=== PATIENT | male | born 1990 | race Caucasian/White ===

== ENCOUNTER 2016-07-22 06:06 | Inpatient (IN) | payer MEDICARE, MEDICAID ==
[~2016-07-22] VITALS: Ht 177.8 cm; Wt 63.7 kg
--- NOTE | ~2016-07-22 | CON ---
PATIENT'S NAME: MATEUS WINTERS [facility] AGE: 26 Y [address] ROOM: [address] [address] LOCATION: [facility] [place] ADMIT DATE: 07/22/2016 Consultation DISCHARGE DATE: FAMILY PHYSICIAN: Rhonda Solis PA-C ATTENDING PHYSICIAN: Luan Baldwin DATE OF CONSULTATION: 07/22/2016 REASON FOR CONSULTATION: ESRD, need for hemodialysis and possibility of hungry bone syndrome after parathyroidectomy. 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 He has a history of failed his renal transplant at age 8 when the father was donor of the allograft. The graft lasted for about 15 years and now he is back on dialysis again and being evaluated for a re-transplant. He got admitted for parathyroidectomy for tertiary hyperparathyroidism. Surgery went well. Nephrology consultation has been called for management of dialysis as well as for monitoring the calcium with a possibility of hungry bone syndrome. The patient was seen and evaluated after the surgery. Currently doing well. No symptoms of tetany or any other cramps. The patient does not show any Chvostek sign on my exam. He feels well, has no symptoms of fluid overload. Got dialyzed yesterday as per his regular Tuesday, Tuesday, and Tuesday schedule. Plan to get dialyzed again tomorrow. REVIEW OF SYSTEMS: GENERAL: No fever. No chills or rigor. HEENT: The patient now has a surgical scar on the neck which is mildly tender just after surgery. No sinus congestion. CVS: No chest pain. No exertional shortness of breath. No leg swelling. RESPIRATORY: No shortness of breath. No cough. No wheezing. GENITOURINARY: No pain with urination. No increased frequency. No nocturia. GASTROINTESTINAL: No abdominal pain. No abdominal distention. No nausea or vomiting. NEUROLOGIC: No weakness. No seizures. SKIN: No rash. No itching. ALLERGIES: No seasonal allergy. No hayfever. ENDOCRINE: No heat intolerance. No cold intolerance. PSYCHIATRIC: No sadness. No crying spells. No history of panic attack. PAST MEDICAL HISTORY: 1. End-stage renal disease secondary to congenital obstructive uropathy and hydronephrosis with bladder exstrophy, status post urethral diversion and urostomy formation. 2. Status post living-related renal transplantation at age 8 from Father and the graft lasted for 15 years, now failed, and back on dialysis. 3. Tertiary hyperparathyroidism, status post partial parathyroidectomy today, 07/22/2016. 4. Anemia of chronic disease. 5. Hypertension. PATIENT'S NAME: MATEUS WINTERS [facility] AGE: 26 Y [address] ROOM: [place] [address] LOCATION: [facility] [place] ADMIT DATE: 07/22/2016 Consultation DISCHARGE DATE: FAMILY PHYSICIAN: Rhonda Solis PA-C ATTENDING PHYSICIAN: Luan Baldwin PAST SURGICAL HISTORY: 1. Multiple urogenital procedures for bladder exstrophy and obstructive uropathy. 2. Renal allograft transplant as mentioned above. 3. Tonsillectomy. 4. Left forearm fistula. 5. Left axillary node removal and excision by Dr. Snell in 2016. ALLERGIES: LASIX. HOME MEDICATIONS: 1. Tylenol 325 mg 2 tablets daily as needed for pain. 2. Cipro 500 mg p.o. at bedtime. 3. Labetalol 100 mg p.o. b.i.d. 4. Lactobacillus 1 tablet p.o. b.i.d. 5. EMLA cream apply to dialysis fistula on the arm before the procedure. 6. Losartan 100 mg p.o. daily. 7. Flagyl 500 mg p.o. q.8 hourly. 8. Minoxidil 10 mg p.o. daily. 9. Propranolol 80 mg p.o. b.i.d. FAMILY HISTORY: Noncontributory. The patient does not have a history of renal disease or dialysis in the family. SOCIAL HISTORY: Lives at home. Does have a history of smoking, but recently stopped last year for posttransplant status. Denies any illicit drug use or alcohol abuse. Mother is the main yoke setter. PHYSICAL EXAMINATION: VITAL SIGNS: Blood pressure 119/61, pulse 75, respiratory rate 16, temperature 98.1, saturating at 98% on room air. GENERAL: Not in apparent distress. HEAD: Moist mucous membrane. Bilateral PERRLA. EOMI. No Chvostek sign on examination. NECK: There is anterior neck incision covered with a bandage. Bandage clean, dressing intact. CVS: S1 and S2 normal, regular rate and rhythm. No murmur, rub, gallop. CHEST: Bilateral air entry equal. No wheeze or rales. ABDOMEN: Soft, nontender, nondistended. Bowel sounds present. EXTREMITIES: No cyanosis, clubbing, jaundice. No dependent edema. MUSCULOSKELETAL: No limitation of range of motion. SKIN: No pallor, cyanosis, icterus. ROLL CAPPER: Alert and oriented x3. No gross findings. LABORATORY STUDIES: CBC: WBC 4.4, hemoglobin 9.6, and platelets 164. Chemistry: Sodium 143, potassium 4.6, BUN 21, creatinine 5.2, bicarbonate 30, chloride 103, glucose 105, calcium 9, total protein 7.8, albumin 3.8. No postoperative lab at this point yet.PATIENT'S NAME: MATEUS WINTERS [facility] AGE: 26 Y [address] ROOM: [place] [address] LOCATION: [facility] [place] ADMIT DATE: 07/22/2016 Consultation DISCHARGE DATE: FAMILY PHYSICIAN: Rhonda Solis PA-C ATTENDING PHYSICIAN: Luan Baldwin ASSESSMENT/PLAN: 1. Tertiary hyperparathyroidism, status post partial parathyroidectomy. We will closely monitor for hungry bone syndrome. Preoperative calcium level was 9, we will repeat the total calcium and ionized calcium now and every 6 hourly. The patient has been started on p.o. calcium supplementation, however, may need some IV calcium gluconate. We will closely monitor. No signs of hypocalcemia, tetany, or Chvostek signs at this point. Please call me with the results of calcium and ionized calcium results after every 6 hours. We will also use high calcium bath on dialysis to support his calcium postsurgery. 2. End-stage renal disease, on hemodialysis, status post failed transplant. The patient undergoes dialysis at [facility] as per Tuesday, Tuesday, and Tuesday schedule. Last dialysis was yesterday. Plan to dialyze him again tomorrow as per his regular daily schedule, and we will dialyze him on a high calcium bath to support the serum calcium level. 3. Hypertension. Blood pressure is quite stable and he is compliant with antihypertensives. At this point, we will continue to monitor. 4. History of bladder exstrophy, status post ileal conduit, stable. Continue current plan and management of care. Thank you for allowing me to participate in this patient's care. We will closely monitor the patient's progress along with you. JIMEKH BORA MENDOZA MD /modl /[id number] d: 07/22/161947 t: 07/23/16 1354, CONSULTATION REPORT
--- NOTE | ~2016-07-22 | OR ---
PATIENT'S NAME: MATEUS WINTERS [facility] AGE: 26 Y [address] ROOM: [address] [address] [place] [facility] [place] ADMIT DATE: 07/22/2016 OR/Procedure Report DISCHARGE DATE: FAMILY PHYSICIAN: Rhonda Solis PA-C ATTENDING PHYSICIAN: Luan Baldwin SURGEON: Luan Baldwin MD [employer] DISTRIBUTOR: Lorraine Garces PA-C. DATE OF PROCEDURE: 07/22/2016 PREOPERATIVE DIAGNOSIS: Tertiary hyperparathyroidism. POSTOPERATIVE DIAGNOSIS: Tertiary hyperparathyroidism. PROCEDURE: [id number]-[id number]-half gland parathyroidectomy. FINDINGS: All four glands were able to be identified. Three and slightly over half gland were removed. The right inferior gland was marked for future neck exploration as needed. ESTIMATED BLOOD LOSS: Less than 20 mL. COMPLICATIONS: None. INDICATIONS: The patient is a 26-year-old male who has renal failure, has had a previous kidney transplant. He now is being dialyzed. He wants to be on the transplant list again. Has extremely elevated PTH levels. Because of this, we were asked to perform parathyroidectomy. The risks, benefits, and alternatives were discussed with the patient in detail and he wished to proceed. DESCRIPTION OF PROCEDURE: The patient was taken to the operating room, he was placed supine, given IV sedation, and subsequently intubated. His neck was prepped with ChloraPrep and sterilely draped. Local anesthetic was infiltrated. A collar-type incision was then created and carried into the subcutaneous tissues and through the platysma using electrocautery. The strap muscles were then divided in the midline after subplatysmal flaps were created. We attended to the left side first. We were able to retract the strap muscles laterally exposing the thyroid. Middle thyroid vein was divided using Harmonic scalpel. The left inferior parathyroid was easily identifiable, this was very large consistent with hyperplasia. We then rotated the thyroid medially and slowly we were able to identify the superior thyroid gland. This was dissected around circumferentially using electrocautery staying right on the capsule. This was removed and was sent for frozen section. Once this was completed, we turned our attention to the right side. Both superior and inferior parathyroid glands were also readily PATIENT'S NAME: MATEUS WINTERS [facility] AGE: 26 Y [address] ROOM: [address] [address] LOCATION: [facility] [place] ADMIT DATE: 07/22/2016 OR/Procedure Report DISCHARGE DATE: FAMILY PHYSICIAN: Rhonda Solis PA-C ATTENDING PHYSICIAN: Luan Baldwin identifiable on the right. We did have to ligate the middle thyroid vein in order to mobilize the thyroid medially to find the superior gland. Once the superior gland was identified, this was dissected around circumferentially on the capsule and removed. The two inferior parathyroids sat on the inferior border of the thyroid quite anteriorly, these were both biopsied. All four of these were sent for frozen section and parathyroid tissue was confirmed. Once this was completed, we excised the rest of the left inferior parathyroid gland, then turned our attention to the right where slightly over half of this gland was removed. We did place 2 metallic clips, 1 just superior and 1 just inferior to the gland. Prior to excision of the left gland, we had divided the right. It appeared that it continued to have adequate vascular supply. Once this was completed, the operative field was inspected, it appeared hemostatic. The strap muscles were reapproximated with 3-0 silk suture. The platysma was reapproximated with 3-0 Vicryl suture and the skin was closed with 4-0 Monocryl suture. Steri-Strips and sterile dressings were placed. The patient was extubated and sent to recovery in good condition. MD EDUIN WALTER/yajaira /[id number] d: 07/22/161914 t: 07/30/16 1503, OPERATIVE SUMMARY
--- NOTE | ~2016-07-22 | DS ---
PATIENT'S NAME: MATEUS WINTERS [facility] AGE: 26 Y [address] ROOM: [address] [address] [place] [facility] [place] DATE: 07/26/2016 Discharge Summary DISCHARGE DATE: 07/26/2016 FAMILY PHYSICIAN: Rhonda Solis PA-C ATTENDING PHYSICIAN: Luan Baldwin DISCHARGE DIAGNOSES: 1. Tertiary hyperparathyroidism. 2. End-stage renal disease. 3. Neurogenic bladder. HOSPITAL COURSE: Summary: Mateus Winters is a 26-year-old male who was seen in consultation initially on 06/02/2016 at [facility] for tertiary hyperparathyroidism. The patient has a long history of end-stage renal disease, and actually underwent a kidney transplant at the age of 8, but this failed approximately 3 years ago and has required dialysis since then. I discussed recommendations for a subtotal parathyroidectomy with the patient along with the expected postoperative recovery, risks, benefits, etc,. The patient followed up with Dr. Baldwin at [facility] on 06/09/2016, and again the indications, risks, benefits, and alternatives were thoroughly discussed. The patient opted to proceed and was admitted to [facility] on the morning of 07/22/2016. He received Ancef 2 g IV preoperatively. The patient was taken to the operating room for a 3-1/2 gland parathyroidectomy. A portion of the right inferior gland was left in place and was marked with hemoclips in case future exploration was needed. Please see Dr. Baldwin's procedure note for specifics. Postoperatively, the patient was allowed activity as tolerated. He was started on clear liquids and advance diet as tolerated. Ice was placed on the incision as needed. Nephrology was consulted for medical management. Breckenridge, Motrin, and Tylenol were all ordered for pain control. The patient was started on oral calcium. On postoperative day 1, the patient had some mild oozing from the skin edges with no significant neck swelling. Serum calcium was low, but ionized calcium was still within normal limits. The patient returned to his usual Tuesday, Tuesday, and Tuesday dialysis. On postoperative day 2, ionized calcium was 3.37. On postoperative day 3, the patient was doing okay and was asymptomatic, but continued to ooze from the incision site. IV calcium was given. Additional sutures were also placed on the incision. On postoperative day #4, the patient was doing well. He was ambulating within the room without difficulty. He was expecting to go home. He was swallowing okay. He has not had any further issues with bleeding from the incision. The patient underwent dialysis, then arrangements were made for the patient to be able to discharge home following that. DISCHARGE INSTRUCTIONS: Include: 1. No restrictions in diet. PATIENT'S NAME: MATEUS WINTERS [facility] AGE: 26 Y [address] ROOM: [id number] [place], [place] [address] [place] [facility] [place] DATE: 07/26/2016 Discharge Summary DISCHARGE DATE: 07/26/2016 FAMILY PHYSICIAN: Rhonda Solis PA-C ATTENDING PHYSICIAN: Luan Baldwin 2. No restrictions in activity. 3. He can change the dressing as needed. 4. He will follow up with Dr. Baldwin in 1 week. 5. He will follow up with Dr. Torres as previously scheduled. DISCHARGE MEDICATIONS: Include: 1. Minoxidil 10 mg p.o. at bedtime. 2. Propranolol 80 mg p.o. twice daily. 3. Acetaminophen 650 mg every 6 hours as needed. 4. Lidocaine ointment topically as needed for dialysis. 5. Labetalol 100 mg orally twice daily. 6. Tramadol 50 mg orally 3 times daily as needed for pain. 7. Gabapentin 100 mg orally 3 days a week. 8. Calcium carbonate 3000 mg orally 4 times daily. 9. Breckenridge 5/325, 1 to 2 every 4 hours as needed for pain. 10. Calcitriol 0.25 mcg p.o. q. day, dispensing 14. 11. A prescription for Breckenridge was also given, dispensing 30 with no refills. For specifics on day-to-day care, please refer to the hospital chart. TELLO WEINSTEIN PA-C FOR MD BABS WALTER/yajaira /[id number] d: 07/28/16 1211 t: 07/30/16 1506, DISCHARGE SUMMARY
[~2016-07-22 06:06] MED LIST: CIPRO500 MG PO; COREG25 MG PO; COZAAR100 MG PO; COZAAR50 MG PO; FLAGYL500 M1 PO; FLAGYL500 MG PO; FLORASTOR250 MG PO; HUMIBID LA (MU600 MG PO; LACTINEX (FLORA1 TAB PO; LEVAQUIN500 MG PO; LIDOCAINE37.5 GM TOP; MINOXIDIL10 MG PO; NEURONTIN100 MG PO; NORCO 5-325 MG1 TAB PO; OMEPRAZOLE40 MG PO; PROPRANOLOL HCL80 MG PO; TRANDATE OR NO100 MG PO; TYLENOL325 MG PO; ULTRAM50 MG PO; ZOFRAN4 MG PO; ZOFRAN8 MG PO
[2016-07-22 07:15] LABS: BASOPHIL # 0.1 K/uL (0.0-0.2); BASOPHIL % 1.1 %; EOSINOPHIL # 0.1 K/uL (0.0-0.5); EOSINOPHIL % 2.1 %; HEMATOCRIT 29.4 % (37.0-53.0); HEMOGLOBIN 9.6 g/dL (12.0-17.0); IMMATURE GRANULOCYTE # 0.1 K/uL (0.0-0.3); IMMATURE GRANULOCYTE % 1.1 %; LYMPHOCYTE # 1.6 K/uL (0.8-4.0); LYMPHOCYTE % 36.5 %; MCH 29.5 pg (27.0-34.0); MCHC 32.7 gm/dL (32.0-36.5); MCV 90.5 fl (83.0-98.0); MONOCYTE # 0.5 K/uL (0.0-1.0); MONOCYTE % 11.5 %; MPV 8.8 fl (9.4-12.4); NEUTROPHIL # (ANC) 2.1 K/uL (1.4-9.0); NEUTROPHIL % 47.7 %; NRBC % 0 /100WBC (0-0.00); RBC 3.25 M/uL (4.00-6.00); RDW-CV 14.1 % (11.9-14.6); WBC 4.4 K/uL (4.0-11.0)
[2016-07-22 07:16] LABS: PLATELET COUNT 164 K/uL (150-450)
[2016-07-22 07:29] LABS: ALBUMIN 3.8 gm/dL (3.5-5.0); ANION GAP 12.6 (10.0-19.0); POTASSIUM 4.6 mMol/L (3.7-5.1); TOTAL BILIRUBIN 0.6 mg/dL (0.0-1.5); TOTAL PROTEIN 7.8 g/dL (6.0-8.4)
[2016-07-22 07:30] LABS: CREATININE 5.2 mg/dL (0.6-1.3)
[2016-07-24 08:08] LABS: ALBUMIN 3.5 gm/dL (3.5-5.0); ANION GAP 14.3 (10.0-19.0); PHOSPHORUS 2.8 mg/dL (2.5-4.9); POTASSIUM 5.3 mMol/L (3.7-5.1)
[2016-07-24 08:15] LABS: CALCIUM 6.7 mg/dL (8.5-10.5)
[2016-07-25 07:14] LABS: ALBUMIN 3.6 gm/dL (3.5-5.0); ANION GAP 15.4 (10.0-19.0); PHOSPHORUS 3.2 mg/dL (2.5-4.9); POTASSIUM 5.4 mMol/L (3.7-5.1)
[2016-07-25 07:15] LABS: CALCIUM 7.1 mg/dL (8.5-10.5); CREATININE 8.4 mg/dL (0.6-1.3)
[2016-07-26 07:34] LABS: ALBUMIN 3.6 gm/dL (3.5-5.0); ANION GAP 16.5 (10.0-19.0); CALCIUM 7.6 mg/dL (8.5-10.5); PHOSPHORUS 2.9 mg/dL (2.5-4.9); POTASSIUM 5.5 mMol/L (3.7-5.1)
[2016-07-26 07:35] LABS: CREATININE 10.1 mg/dL (0.6-1.3)
[2016-07-26] MEDS ORDERED: TUMS REGULAR ST1 TAB PO (13:47)
[2016-07-26] MEDS ORDERED: NORCO 5-325 TA1 EACH PO (13:48)
[2016-07-26] MEDS ORDERED: ROCALTROL0.5 MCG PO (13:49)
== END 2016-07-26 14:41 | disposition disaster alternative care site (69) | DRG 625 ==
LOC: GSDC 06:06 → GMSU 06:06 → GSDC 15:00 → GMSU 07-23 14:21 → GSDC 07-23 14:21 → GMSU 07-26 14:00
PROVIDERS: Anesthesiology; Internal Medicine Nephrology; ADMIT Surgery
DX: E21.2 Other hyperparathyroidism (principal); N18.6 End stage renal disease; T86.12 Kidney transplant failure; Q62.0 Congenital hydronephrosis; Y83.8 Other surgical procedures as the cause of abnormal reaction of the patient, or of later complication, without mention of misadventure at the time of the procedure; D63.1 Anemia in chronic kidney disease; I10 Essential (primary) hypertension; Z87.891 Personal history of nicotine dependence
CPT/HCPCS: G0378; J0610; J0690; J1100; J1170; J1644; J2001; J2250; J2405; J3010; J7030; J7040; J7050

== ENCOUNTER → 2016-07-28 | Outpatient (CLI) | payer MEDICARE, MEDICAID ==
[~2016-07-28] MED LIST changes: +DESYREL50 MG PO; +NORCO 5-325 TA1 EACH PO; +ROCALTROL0.5 MCG PO; +TUMS REGULAR ST1 TAB PO
== END | disposition disaster alternative care site (69) ==
LOC: LGSMG 13:11
DX: E89.2 Postprocedural hypoparathyroidism (principal); E21.2 Other hyperparathyroidism

== ENCOUNTER → 2016-08-02 | Outpatient (CLI) | payer MEDICARE, MEDICAID | END | disposition disaster alternative care site (69) | LOC: LGSMG 12:22 | DX: E21.2 Other hyperparathyroidism (principal) ==

== ENCOUNTER → 2016-08-06 | Outpatient (CLI) | payer MEDICARE, MEDICAID | END | disposition disaster alternative care site (69) | LOC: LGSMG 14:29 | DX: E21.2 Other hyperparathyroidism (principal) ==

== ENCOUNTER 2016-08-27 18:52 | Emergency (ER) | payer MEDICARE, MEDICAID ==
--- NOTE | ~2016-08-27 | ER ---
PATIENT'S NAME: MATEUS WINTERS [facility] AGE: 26 Y [address] ROOM: [place] [address] LOCATION: [facility] ADMIT DATE: 08/27/2016 ER/Outpatient Report DISCHARGE DATE: 08/27/2016 FAMILY PHYSICIAN: Physician, Unknown ATTENDING PHYSICIAN: Kristel Root Time of Arrival: 1846 hours. Time of Evaluation: 1846 hours. IDENTIFICATION: A 26-year-old male. CHIEF COMPLAINT: Illness. HISTORY OF PRESENT ILLNESS: The patient is a 26-year-old male with end-stage renal disease, on hemodialysis. He was at dialysis about only one-half hour left in the dialysis when he was not feeling well. He said he felt kind of lightheaded, dizzy, and his blood pressure was elevated. He developed a headache at that time as well. He describes it as a frontal headache. His blood pressure was 190/132 while at dialysis. He denies chest pain. He denies any numbness or tingling. He does have a history of hypertension and is on 3 antihypertensives. PAST MEDICAL HISTORY: ALLERGIES: NO KNOWN DRUG ALLERGIES. CURRENT MEDICATIONS: The med list that Dialysis sent indicates that he is on carvedilol 25 mg b.i.d., labetalol 100 mg b.i.d., losartan 100 mg daily, minoxidil 10 mg one- half tablet at bedtime, Renvela 800 mg 2 tablets 3 times a day, and Tylenol Extra Strength 500 mg 4 times a day. The patient states that he does not think he takes those. He does not believe he is on the carvedilol. He does state he takes the labetalol. He does not think he takes the losartan. He takes the minoxidil, and then he believes he takes propranolol twice a day. We did pull up a record from discharge from the hospital, August 05 after he had his parathyroid glands removed, and he at that time was on minoxidil 10 mg at bedtime, propranolol 80 mg b.i.d., Tylenol 650 q.6 hours p.r.n., labetalol 100 mg b.i.d., tramadol p.r.n., gabapentin 100 mg t.i.d., calcium carbonate 3000 mg 4 times daily, and calcitriol 0.25 mcg every day. When we did get a medication list faxed from the pharmacy, [facility] in [place], it includes all the different medications he has been on and so it is not clear from that PATIENT'S NAME: MATEUS WINTERS [facility] AGE: 26 Y [address] ROOM: [place] [address] LOCATION: [facility] ADMIT DATE: 08/27/2016 ER/Outpatient Report DISCHARGE DATE: 08/27/2016 FAMILY PHYSICIAN: Physician, Unknown ATTENDING PHYSICIAN: Kristel Root A list what he is currently taking. MEDICAL PROBLEMS: 1. End-stage renal disease secondary to congenital hydronephrosis from obstructive uropathy. 2. Tertiary hyperparathyroidism, status post recent parathyroidectomy. 3. Renal transplant at age 8 failed and currently on hemodialysis for the last 3 years. 4. Hypertension. 5. Anemia of chronic disease. PRIOR SURGERIES: Multiple urogenital procedures for bladder exstrophy and obstructive uropathy, renal allograft transplant, tonsillectomy, left forearm fistula, left axillary node removal and excision, and parathyroidectomy. FAMILY HISTORY: No pertinent family history identified. SOCIAL HISTORY: The patient lives in [place]. His primary care doctor is Dr. Melgar. Tobacco use, denies. Alcohol use, denies. Drug use, denies. REVIEW OF SYSTEMS: All systems reviewed and negative other than what is noted in the HPI. PHYSICAL EXAMINATION: VITAL SIGNS: Weight 64.6 kg. Blood pressure 192/120, pulse 63, respirations 10, temperature 97.6, and saturations 99% on room air. GENERAL: A pleasant male in no acute distress, although he does rate a 4/10 frontal headache. HEENT: Head: Normocephalic, atraumatic. Ears: TMs translucent, both ears. Nose: Mucosa pink, no lesions or drainage. Mouth: No lesions. Pharynx benign. NECK: Supple. No lymphadenopathy. LUNGS: Clear to auscultation. HEART: Regular rate and rhythm. ABDOMEN: Soft, nondistended, nontender. He does have a ureterostomy. EXTREMITIES: No edema. Good distal pulses. He has a fistula on his left upper extremity. MUSCULOSKELETAL: No joint pain. SKIN: No rashes. NEURO: The patient is alert and oriented x4. Cranial nerves 2 through 12 grossly intact. Motor strength 5/5 throughout. Sensation is intact to light touch. PATIENT'S NAME: MATEUS WINTERS [facility] AGE: 26 Y [address] ROOM: [place], [place] [address] LOCATION: [facility] ADMIT DATE: 08/27/2016 ER/Outpatient Report DISCHARGE DATE: 08/27/2016 FAMILY PHYSICIAN: Physician, Unknown ATTENDING PHYSICIAN: Kristel Root EMERGENCY DEPARTMENT COURSE: An IV was initiated. Labs were drawn. An EKG was obtained. The patient was given labetalol 20 mg IV. His blood pressure did come down to 160/107. He felt much better. His pain completely relieved and the dizziness has resolved. Sodium 137, potassium 4.0, chloride 101, CO2 of 25, BUN 27, creatinine 6.6, blood sugar 79. Liver enzymes normal. CPK 173, CK-MB 0.9. Troponin I less than 0.040. Hemoglobin 15.2; hematocrit 46.5; platelets 136, previous platelet count was 164 on July 22; white blood cell count 3.9 with a normal differential, previous white blood cell count 4.4 on July 22. INR 1.14. EKG: Normal sinus rhythm at 56 beats per minute. No acute ST elevation or depression. Again, the patient's symptoms improved. His blood pressure did not completely normalize, but improved, and he has not yet taken his evening medications. IMPRESSION AND PLAN: 1. Hypertension. Plan: Continue all current medications. Take his antihypertensives tonight as directed. Follow up if headache, lightheadedness or any problems. Follow up on Tuesday with Dr. Melgar or Dr. Torres and bring his medications with him so that they can verify what he is actually taking. The patient understands and agrees, and all questions have been answered. 2. Headache, completely resolved. 3. End-stage renal disease. KRISTEL ROOT MD CAR/modl /[id number] d: 08/28/16 0424 t: 05/01/17 1838, OUTPATIENT REPORT
[~2016-08-27 18:52] MED LIST changes: -DESYREL50 MG PO
[2016-08-27 19:11] LABS: BASOPHIL # 0.1 K/uL (0.0-0.2); BASOPHIL % 1.8 %; EOSINOPHIL # 0.1 K/uL (0.0-0.5); EOSINOPHIL % 1.8 %; HEMOGLOBIN 15.2 g/dL (12.0-17.0); LYMPHOCYTE # 1.2 K/uL (0.8-4.0); LYMPHOCYTE % 29.5 %; MCHC 32.7 gm/dL (32.0-36.5); MCV 89.1 fl (83.0-98.0); MONOCYTE # 0.4 K/uL (0.0-1.0); MONOCYTE % 9.2 %; MPV 9.5 fl (9.4-12.4); NEUTROPHIL # (ANC) 2.3 K/uL (1.4-9.0); NEUTROPHIL % 57.7 %; NRBC % 0 /100WBC (0-0.00); PLATELET COUNT 136 K/uL (150-450); RDW-CV 13.2 % (11.9-14.6); WBC 3.9 K/uL (4.0-11.0)
[2016-08-27 19:13] LABS: HEMATOCRIT 46.5 % (37.0-53.0); MCH 29.1 pg (27.0-34.0); RBC 5.22 M/uL (4.00-6.00)
[2016-08-27 19:21] LABS: INR - (THERAPEUTIC) 1.14 (0.92-1.07); PTT 33 SECONDS (25-32)
[2016-08-27 19:31] LABS: ALBUMIN 4.6 gm/dL (3.5-5.0); ALK PHOS 293 IU/L (33-138); ALT 14 IU/L (12-78); AST 22 IU/L (10-40); BLOOD UREA NITROGEN 27 mg/dL (6-24); CALCIUM 8.5 mg/dL (8.5-10.5); CHLORIDE 101 mMol/L (96-110); CO2 25 mMol/L (22-32); CPK 173 IU/L (35-332); SODIUM 137 mMol/L (135-145)
[2016-08-27 19:35] LABS: CREATININE 6.6 mg/dL (0.6-1.3); ESTIMATED GFR (MDRD EQUATION) 10; TOTAL BILIRUBIN 1.1 mg/dL (0.0-1.5); TOTAL PROTEIN 9.3 g/dL (6.0-8.4)
== END 2016-08-27 20:42 | disposition disaster alternative care site (69) ==
LOC: GMED 18:52
PROVIDERS: Family Medicine
DX: I12.0 Hypertensive chronic kidney disease with stage 5 chronic kidney disease or end stage renal disease (principal); N18.6 End stage renal disease; E21.2 Other hyperparathyroidism; D63.1 Anemia in chronic kidney disease

== ENCOUNTER → 2016-08-27 | Outpatient (CLI) | payer MEDICARE, MEDICAID | END | disposition disaster alternative care site (69) | LOC: GAMB 18:31 | DX: I10 Essential (primary) hypertension (principal); R51 Headache | CPT/HCPCS: A0425; A0429 ==

== ENCOUNTER 2016-08-31 16:30 | Observation (INO) | payer MEDICARE, MEDICAID ==
[~2016-08-31] VITALS: Ht 180.3 cm; Wt 61.9 kg
--- NOTE | ~2016-08-31 | HP ---
PATIENT'S NAME: MATEUS WINTERS [facility] AGE: 26 Y [address] ROOM: [place] [address] LOCATION: GPCU ADMIT DATE: 08/31/2016 History & Physical DISCHARGE DATE: FAMILY PHYSICIAN: Rhonda Solis PA-C ATTENDING PHYSICIAN: Karen CHAPARRO DATE OF SERVICE: CHIEF COMPLAINT: Symptomatic hypocalcemia. 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 The patient gets hemodialysis on Tuesday, Tuesday, and Tuesday. The patient reports that he started to experience perioral numbness and finger numbness and tingling. He was seen by his PCP and was found to have calcium of 5.9. The patient was sent for IV calcium treatment. The patient currently reports that his symptoms are improving. He reports of nausea, but denies of any vomiting. He denies chest pain, shortness of breath, seizure-like activity, muscle twitching, abdominal pain, diarrhea, chest pain, or vision change. The patient reports that he is compliant with his medication. The patient follows Dr. Reynoso as an outpatient for his ESRD. MEDICAL HISTORY: 1. ESRD, on hemodialysis Tuesday, Tuesday, Tuesday. 2. Tertiary hyperparathyroidism. 3. Hypocalcemia. 4. Hypertension. SURGICAL HISTORY: 1. AV fistula. 2. Multiple ureteral surgeries. 3. Kidney transplant. 4. Thyroidectomy. FAMILY HISTORY: Mother has a history of thyroid disease. SOCIAL HISTORY: He denies smoking or use of alcohol and lives with his family and is on disability. PATIENT'S NAME: MATEUS WINTERS [facility] AGE: 26 Y [address] ROOM: [place] [address] LOCATION: GPCU ADMIT DATE: 08/31/2016 History & Physical DISCHARGE DATE: FAMILY PHYSICIAN: Rhonda Solis PA-C ATTENDING PHYSICIAN: Karen CHAPARRO MEDICATIONS: See MAR. REVIEW OF SYSTEMS: All systems have been reviewed and are negative except for what is mentioned in the HPI. PHYSICAL EXAMINATION: VITAL SIGNS: Blood pressure 148/105, heart rate of 98, respiratory rate of 16, and temperature of 97.6 Fahrenheit, and 100% on room air. GENERAL APPEARANCE: The patient is alert and oriented, in no acute distress. HEENT: Head normocephalic and atraumatic. Eyes: Extraocular movements are intact. Sclerae are nonicteric. No nasal discharge. No Chvostek's sign. NECK: Supple. CHEST: Clear to auscultation bilaterally. HEART: Regular rhythm and rate. No murmurs, rubs, or gallops heard. ABDOMEN: Soft, nontender, and nondistended. Bowel sounds present. EXTREMITIES: Right forearm AV fistula present, bruit present. Negative Trousseau sign. SKIN: Warm to touch. No skin lesion appreciated. NEURO: The patient is alert and oriented x3. Motor and Sensory: Grossly intact. LABORATORY DATA: Calcium of 5.9 and albumin of 4.8. BUN of 31, creatinine of 7.74, CO2 of 31.6, glucose of 104, sodium of 142, and potassium 4.1. ASSESSMENT AND PLAN: The patient is a 26-year-old gentleman with past medical history of end-stage renal disease secondary to congenital bladder dysfunction, status post failed kidney transplant; history of tertiary hyperparathyroidism, status post recent thyroidectomy, who presents here with symptomatic hypocalcemia with calcium level of 5.9. 1. Symptomatic hypercalcemia. Etiology secondary to recent thyroidectomy. The patient is on calcium carbonate and vitamin D. The patient reports that he is compliant with medication. The patient currently reports of improving symptoms. Negative tetany, negative Chvostek sign and Trousseau sign. The patient is neurologically intact. QTc on admission is 489. We will keep the patient on tele monitor. Continue vitamin D and home medication of calcium carbonate. Nephrology on board. The patient is scheduled for a dialysis with high calcium wash. Dialysate. Repeat renal function panel tomorrow. 2. End-stage renal disease. The patient is scheduled for a dialysis tomorrow. 3. Hypertension. Etiology most likely secondary to end-stage renal disease. PATIENT'S NAME: MATEUS WINTERS [facility] AGE: 26 Y [address] ROOM: [place] [address] LOCATION: GPCU ADMIT DATE: 08/31/2016 History & Physical DISCHARGE DATE: FAMILY PHYSICIAN: Rhonda Solis PA-C ATTENDING PHYSICIAN: Karen CHAPARRO We will continue home medications. 4. Nausea, no mention of vomiting. We will put on antiemetic medication. Greater than 30 minutes was spent on chart review and direct patient interaction. Greater than 50% of the time was spent with direct contact with the patient. Assessment and plan was discussed with the patient. All questions were answered satisfactorily. Also, discussed the case with Nephrology. MD PAZ SMITH/yajaira /[id number] D: [id number] T: [id number] HISTORY & PHYSICAL
--- NOTE | ~2016-08-31 | CON ---
PATIENT'S NAME: MATEUS WINTERS [facility] AGE: 26 Y [address] ROOM: [id number] [place], [place] [address] LOCATION: GPCU ADMIT DATE: 08/31/2016 Consultation DISCHARGE DATE: 09/01/2016 FAMILY PHYSICIAN: Rhonda Solis PA-C ATTENDING PHYSICIAN: Karen CHAPARRO DATE OF CONSULTATION: 08/31/2016 REFERRING PHYSICIAN: Adwoa Reynoso MD This is a [facility] Nephrology consultation. REASON FOR CONSULTATION: End-stage renal disease, on hemodialysis therapy; hypocalcemia secondary to parathyroidectomy. HISTORY OF PRESENT ILLNESS: This is a 26-year-old male patient who is well known to our Nephrology service, who presented to outpatient clinic complaining of nausea and vomiting with tingling. The patient is status post parathyroidectomy with Dr. Baldwin and has been receiving IV as well as oral calcium supplementation. The patient's calcium was checked in the outpatient clinic and was found to be 5.9. The patient was subsequently sent to the hospital for admission and further evaluation with IV calcium replacement. 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 The patient has been having trouble with tertiary hyperparathyroidism with his PTH greater than 1000. He recently did agree to having a parathyroidectomy and has been doing better overall since. However, he most recently did notify me that there was some concern as to what time of the day he was to be taking his calcium carbonate. He feels that this is the reason why his calcium has dropped more currently. He is currently asymptomatic at the time of exam. He is scheduled for his regular dialysis on Tuesday, Tuesday, and Tuesday. PAST MEDICAL HISTORY: As listed above including, 1. End-stage renal disease, on hemodialysis therapy. 2. History of obstructive uropathy. 3. History of congenital hydronephrosis. 4. 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 5. Status post a living relative renal transplantation at the age of 8 from his father and the graft lasted for 15 years, now failed and back on dialysis. 6. Tertiary hyperparathyroidism, status post partial parathyroidectomy. PATIENT'S NAME: MATEUS WINTERS [facility] AGE: 26 Y [address] ROOM: [place] [address] LOCATION: GPCU ADMIT DATE: 08/31/2016 Consultation DISCHARGE DATE: 09/01/2016 FAMILY PHYSICIAN: Rhonda Solis PA-C ATTENDING PHYSICIAN: Karen CHAPARRO 7. History of anemia of chronic disease. 8. Hypertension. PAST SURGICAL HISTORY: As listed above including, 1. Partial parathyroidectomy. 2. Multiple urogenital procedures for bladder exstrophy and obstructive uropathy. 3. Renal allograft transplant. 4. Tonsillectomy. 5. Left forearm fistula placement. 6. Left axillary node removal and excision by Dr. Snell in 2016. FAMILY HISTORY: Reviewed and is negative for any type of renal disease or dialysis. SOCIAL HISTORY: The patient does currently deny any smoking or alcohol use. He has recently stopped smoking. He is doing this for transplant purposes. He does live with his [place]. REVIEW OF SYSTEMS: GENERAL: Denies any fever, chills, or night sweats. EYES: No double vision or blurred vision. NOSE: No epistaxis or rhinorrhea. MOUTH: No gingival bleeding. THROAT: No sore throat, hoarseness, or cough. RESPIRATORY: Denies wheezing or hemoptysis. CARDIOVASCULAR: Denies any chest pain or palpitations. GASTROINTESTINAL: Does complain of nausea and vomiting. Denies diarrhea. GENITOURINARY: Denies any trouble with urination. MUSCULOSKELETAL: Denies any arthralgias or myalgias. NEUROLOGICAL: Complains of generalized numbness and tingling likely secondary to hypocalcemia. HEMATOLOGICAL: Denies bruising or easy bleeding. IMMUNOLOGICAL: Denies any recent infections. ALLERGIES: MORPHINE, ADHESIVE, LATEX. MEDICATIONS: Current home medications include, 1. Tylenol 325 mg 2 tabs p.r.n. pain. 2. Calcitriol 1 mcg p.o. daily. 3. Calcium carbonate 8 tabs p.o. three times a day 30 minutes after eating. PATIENT'S NAME: MATEUS WINTERS [facility] AGE: 26 Y [address] ROOM: [place] [address] LOCATION: GPCU ADMIT DATE: 08/31/2016 Consultation DISCHARGE DATE: 09/01/2016 FAMILY PHYSICIAN: Rhonda Solis PA-C ATTENDING PHYSICIAN: Karen CHAPARRO 4. Labetalol 100 mg p.o. twice a day. 5. EMLA cream p.r.n. dialysis. 6. Minoxidil 10 mg p.o. at bedtime. 7. Tramadol as needed up to three times a day p.r.n. headache. 8. Trazodone 50 mg p.o. q.h.s. PHYSICAL EXAMINATION: VITAL SIGNS: Blood pressure is 143/84, pulse is 71, respirations 25, temp is 97.8, and saturations are 99% on room air. GENERAL: On exam, this is an alert and oriented white male who appears his approximate stated age, is in no acute distress. HEENT: His head is normocephalic and atraumatic. Eyes; pupils are equal and react briskly to light and accommodation. EOMs are intact. Nose is midline. Mouth; no gingival bleeding. Throat is without lymphadenopathy, carotid bruits, or JVD. LUNGS: Lung sounds are clear to auscultation anteriorly and posteriorly. Breaths are nonlabored. CARDIOVASCULAR: Regular rate and rhythm with no appreciable murmurs, rubs, or thrills. ABDOMEN: Soft, nontender, and nondistended. Bowel sounds positive. EXTREMITIES: No signs of peripheral edema, clubbing, or cyanosis. NEUROLOGICAL: Cranial nerves 2 through 12 are grossly intact. LABORATORY DATA: Calcium was 5.9 at the clinic, current labs are pending. ASSESSMENT AND PLAN: 1. Hypocalcemia. We are going to replace the patient with IV calcium gluconate 2 g IV x1 now. We will closely monitor his calcium levels as well as getting him restarted on his oral supplements as an outpatient. He is also to be getting 4 mcg of IV Hectorol on dialysis 3 days a week. We did instruct him it is important to take his calcitriol 1 mcg daily, on dialysis on Tuesday, Tuesday, and Tuesday as well as on his nondialysis days. He is to continue calcium carbonate 600 mg 8 tablets 2 hours following each meal. We will continue him on weekly calcium checks at this time. 2. End-stage renal disease, on hemodialysis therapy. We will plan to have hemodialysis as warranted tomorrow on his normal schedule of Tuesday, Tuesday, and Tuesday. Should the patient be discharged in the interim, we will plan to dialyze him as an outpatient. 3. Hypertension. Blood pressures are quite stable today. He is to continue his current medications. 4. History of noncompliance. The patient has been relatively compliant given proper education over the past year. He is trying very diligently to get replaced on the transplant list in the near future. PATIENT'S NAME: MATEUS WINTERS [facility] AGE: 26 Y [address] ROOM: [id number] [place] [id number] [facility]: [facility] ADMIT DATE: 08/31/2016 Consultation DISCHARGE DATE: 09/01/2016 FAMILY PHYSICIAN: Rhonda Solis PA-C ATTENDING PHYSICIAN: Karen CHAPARRO This patient has been seen and assessed by Dr. Torres. His care is being conducted in consultation with Dr. Torres as well as me. We will plan further recommendations as they are forthcoming. NAA CERVANTES DNP, PRODUCTION ANALYST FOR [facility] MD JOSE KWAN/yajaira /[id number] d: 09/01/164 t: 09/06/16 1057, CONSULTATION REPORT
--- NOTE | ~2016-08-31 | DS ---
PATIENT'S NAME: MATEUS WINTERS [facility] AGE: 26 Y [address] ROOM: [place] [address] LOCATION: GPCU ADMIT DATE: 08/31/2016 Discharge Summary DISCHARGE DATE: 09/01/2016 FAMILY PHYSICIAN: Rhonda Solis PA-C ATTENDING PHYSICIAN: Yin Jones PRINCIPAL DIAGNOSES: 1. Symptomatic hypocalcemia. 2. End-stage renal disease, on hemodialysis Tuesday, Tuesday, and Tuesday. 3. Hypertension. 4. Failed renal transplant in the past. HOSPITAL COURSE: A 26-year-old gentleman with a past medical history of end- stage renal disease secondary to congenital bladder disorder, presented to primary care physician office with symptoms of perioral numbness and tingling in the hands. A BMP was done, which did show hypocalcemia with the calcium levels around 5. He was admitted to the hospital for hypocalcemia treatment. He was given multiple doses of 2 g of IV calcium gluconate. Nephrology consultation was obtained. The patient is supposed to get dialysis today. After this treatment is done, he will be dismissed from the hospital to done his dialysis today. The patient was seen in the presence of Dr. Torres and explained the pathophysiology of hypocalcemia, and the importance of Tums he is supposed to take at home. There was some suspicion for noncompliance regarding his home calcium treatment. Of note, the patient was noted to be on 2 beta blocking antihypertensives including labetalol and propranolol. Propranolol was discontinued on the discharge. DISCHARGE MEDICATIONS: 1. Calcitriol 1 mcg p.o. every day. 2. Calcium carbonate/Tums regular 8 tablets p.o. 3 times daily. 3. Labetalol 100 mg p.o. twice daily. 4. Minoxidil 10 mg p.o. every night at bedtime. 5. Tylenol 650 mg p.o. q.6 hours p.r.n. 6. Tramadol 50 mg p.o. 3 times daily p.r.n. 7. Trazodone 50 mg p.o. every night at bedtime. ACTIVITY: As tolerated. FOLLOWUP: Follow up with the dialysis clinic. The patient is advised to be absolutely compliant with these medications. PATIENT'S NAME: MATEUS WINTERS [facility] AGE: 26 Y [address] ROOM: [id number] [place] [id number] LOCATION: [facility] ADMIT DATE: 08/31/2016 Discharge Summary DISCHARGE DATE: 09/01/2016 FAMILY PHYSICIAN: Rhonda Solis PA-C ATTENDING PHYSICIAN: Yin Jones MD JOHNNIE RODRIGUES/modl /[id number] d: 09/02/16 0313 t: 09/05/16 1508, DISCHARGE SUMMARY
[~2016-08-31 16:30] MED LIST changes: -DESYREL50 MG PO
[2016-08-31] MEDS ORDERED: DESYREL50 MG PO (17:20)
--- NOTE | 2016-08-31 18:33 | NUR ---
26 Y/O MALE ADMITTED FROM DR OFFICE FOR A Ca OF 5.9. PT C/O N/V X2 DAYS, ALSO C/O NUMBNESS & TINGLING IN BILAT HANDS & FACE SINCE YESTERDAY WELL IN BILAT LEGS OFF & ON TODAY. ALSO C/O HEADACHE X2 DAYS. ALLERGIES - MORPHINE, LATEX & GETS RASH FROM TAPE ADHESIVE. MEDICAL & SURGICAL HISTORY - PT BORN WITH NEUROGENIC BLADDER (CONGENITAL DEFECT) AND HAD A KIDNEY TRANSPLANT AT AGE 8 Y/O. HAS ALSO HAD 42 OTHER SURGERIES TO FIX BLADDER, ILEAL CONDUIT, PORTACATH & REMOVAL, LT ING HERNIA REPAIR, EXC BX OF LT DEEP AXILLA AND MOST RECENTLY HAD A PARATHYROIDECTOMY ON 07/20/16. HYPERTENSION, LT FOREARM AV GRAFT & FISTULA 2012 FOR RENAL FAILURE. FORMER SMOKER X9 YRS & QUIT IN MAR 2016 TO TRY TO GET ON THE TRANSPLANT LIST. ARTHRALGIA IN BILAT LEGS, MIGRAINES DURING & AFTER DIALYSIS, RECEIVED DIALYSIS EVERY M/W/F. REPORT GIVEN TO PT PRIMARY CARE NURSE LUZ MARINA ALBARRAN & THEN MINNA ALBARRAN. PT ALREADY KNOWLEDGED ON ADM EDUCATION.
--- NOTE | 2016-09-01 04:49 | NUR ---
A/O. VSS. AD AJAY. IV AND PO CA+ REPLACED. SELF CARES ILIOCONDUIT. PLAN FOR DIALYSIS TODAY.
[2016-09-01 06:50] LABS: ALBUMIN 3.8 gm/dL (3.5-5.0); ANION GAP 13.1 (10.0-19.0); MAGNESIUM 2.6 mg/dL (1.8-2.6); POTASSIUM 4.1 mMol/L (3.7-5.1)
[2016-09-01 06:51] LABS: CALCIUM 6.6 mg/dL (8.5-10.5); CREATININE 9.5 mg/dL (0.6-1.3)
--- NOTE | 2016-09-01 12:14 | NUR ---
Introduced self and role of care management to pt. He states he is going home today and will go up to [facility] for his dialysis and denies any post discharge needs.
--- NOTE | 2016-09-01 13:57 | NUR ---
1310 PT DISMISSED PER SELF. IS AMBULATORY AND WANT ED TO WALK TO DOOR UNER HIS OWN POWER. AT TIME OF DC PT IS A/O, BRONZE COLOER WARM AND DRY. HE IS GOING TO HIS DIALYSIS CHAIR TIME OF 1430 AT [facility]. HE IS STEADY ON HIS FEET. LUNGS ARE CLEAR ABDOMEN IS SOFT AND FLAT WITH ACTIVE BOWEL SOUNDS. 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 NO EDEMA, PULSES ARE STRONG AND PALPABLE. DISMISSAL INSTRUCTIONS, PRESCRIPTIONS, MEDICATION CHANGES, FOLLOW UP CARE AND APPOINTMENTS ALL WENT OVER WITH PT, VERBALIZES UNDERSTANDING. AMBULATES TO [facility], WITH ALVAREZ ALBARRAN, FOR DC TO DIALYSIS AND HOME.
== END 2016-09-01 13:10 | disposition disaster alternative care site (69) ==
LOC: GPCU 16:31
PROVIDERS: Nurse Practitioner; ADMIT Internal Medicine
DX: E83.51 Hypocalcemia (principal); I12.0 Hypertensive chronic kidney disease with stage 5 chronic kidney disease or end stage renal disease; N18.6 End stage renal disease; T86.12 Kidney transplant failure; N32.9 Bladder disorder, unspecified; E89.0 Postprocedural hypothyroidism; E21.2 Other hyperparathyroidism; Z87.891 Personal history of nicotine dependence; Z79.899 Other long term (current) drug therapy; Z98.890 Other specified postprocedural states
CPT/HCPCS: G0378; G0379; J0610; J2405; J7050

== ENCOUNTER → 2016-08-31 | Outpatient (CLI) | payer MEDICARE, MEDICAID ==
[~2016-08-31] MED LIST changes: +DESYREL50 MG PO
== END ==
LOC: LGSMG 15:57
DX: R11.10 Vomiting, unspecified (principal)